=== PATIENT | male | born 1980 | race Caucasian/White ===

== ENCOUNTER 2017-12-20 23:15 | Inpatient (IN) | payer OTHER ==
[2017-12-20 23:18] VITALS: O2SAT 98
[2017-12-20] MEDS ORDERED: ceFAZolin 2 GM PREMIX 50 ML ONE (23:20)
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
[2017-12-20] MEDS ORDERED: IOHEXOL 350 MG/ML 10 ML VIAL (for RAD DIAG) IVCONTRAST ONE (23:36)
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
[2017-12-20 23:42] LABS: AUTOMATED NEUTROPHIL # 12.3 TH/MM3 (1.8-7.7); BASOPHIL # 0.1 TH/MM3 (0-0.2); BASOPHIL % 0.3 % (0.0-2.0); EOSINOPHIL % 0.2 % (0.0-4.0); HEMATOCRIT 48.1 % (39.0-51.0); HEMOGLOBIN 16.4 GM/DL (13.0-17.0); LYMPH % 25.3 % (9.0-44.0); LYMPHOCYTE # 4.4 TH/MM3 (1.0-4.8); MEAN CELL VOLUME 83.5 FL (80.0-100.0); MEAN CORPUSCULAR HEMOGLOBIN 28.4 PG (27.0-34.0); MEAN PLATELET VOLUME 8.3 FL (7.0-11.0); MONO % 3.5 % (0.0-8.0); MONOCYTE # 0.6 TH/MM3 (0-0.9); NEUT % 70.7 % (16.0-70.0); PLATELET COUNT 362 TH/MM3 (150-450); RED BLOOD COUNT 5.76 MIL/MM3 (4.50-5.90); RED CELL DISTRIBUTION WIDTH 13.4 % (11.6-17.2); WHITE BLOOD COUNT 17.4 TH/MM3 (4.0-11.0)
[2017-12-20 23:53] LABS: INTERNATIONAL NORMALIZED RATIO 1.1 RATIO; PROTHROMBIN TIME - PATIENT 11.4 SEC (9.8-11.6)
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
[2017-12-21] VITALS (14 sets, daily range): BP systolic 138–168; BP diastolic 59–91; PULSE 77–128; RESP 12–31; TEMP 98–99.8; O2SAT 94–100
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
[2017-12-21] MEDS ORDERED: ACETAMINOPHEN/HYDROcodone 325 MG/5 MG TAB PO PRN (00:30)
[2017-12-21] MEDS ORDERED: NALOXONE HCL 0.4 MG/ML AMP IV PUSH PRN (00:30)
[2017-12-21] MEDS ORDERED: ONDANSETRON HCL 4 MG/2 ML VIAL IV PUSH PRN (00:30)
[2017-12-21] MEDS ORDERED: MORPHINE SULFATE 4 MG/ML INJ IV PRN (00:45)
[2017-12-21] MEDS ORDERED: HYDROmorphone HCL PF 2 MG/ML VIAL IV PRN (00:45)
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
[2017-12-21] MEDS: D5-NS + KCL 20 MEQ INJ 1,000 ML IV SCH ×3 (01:29→20:43)
[2017-12-21] MEDS: ACETAMINOPHEN/HYDROcodone 325 MG/10 MG TAB PO PRN ×5 (04:05→20:48)
[2017-12-21] MEDS: PANTOPRAZOLE SOD 40 MG DELAYED RELEASE TAB PO SCH (08:54)
[2017-12-21] MEDS: DOCUSATE SODIUM 100 MG/10 ML UDC NG SCH ×2 (08:55→20:43)
[2017-12-21] MEDS: BACITRACIN TOP OINT 15 GM TUBE TOPICAL SCH (20:44)
[2017-12-22] VITALS (12 sets, daily range): BP systolic 141–171; BP diastolic 77–107; PULSE 79–113; RESP 12–20; TEMP 98.1–99.2; O2SAT 94–98
[2017-12-22] MEDS: ACETAMINOPHEN/HYDROcodone 325 MG/10 MG TAB PO PRN ×4 (01:41→21:37)
--- NOTE | 2017-12-22 05:31 | RADRPT ---
EXAM DATE/TIME: 12/22/2017 05:23 [place] COMPARISON: CT BRAIN W/O CONTRAST, December 20, 2017, 23:26. INDICATIONS : Follow up hemorrhage. RADIATION DOSE: 50.47 CTDIvol (mGy) MEDICAL HISTORY : None SURGICAL HISTORY : None. ENCOUNTER: Subsequent ACUITY: 2 days PAIN SCALE: 0/10 LOCATION: cranial TECHNIQUE: Multiple contiguous axial images were obtained of the head. Using automated exposure control and adj ustment of the mA and/or kV according to patient size, radiation dose was kept as low as reasonably a chievable to obtain optimal diagnostic quality images. DICOM format image data is available electro nically for review and comparison. FINDINGS: CEREBRUM: The ventricles are normal for age. No evidence of midline shift, mass lesion, hemorrhage or acute in farction. No extra-axial fluid collections are seen. POSTERIOR FOSSA: The cerebellum and brainstem are intact. The 4th ventricle is midline. The cerebellopontine angle i s unremarkable. EXTRACRANIAL: The visualized portion of the orbits is intact. A large subgaleal hematoma is seen overlying the left parietal bone. This is stable. A few scattered foci of air are seen within this. SKULL: The calvaria is intact. No evidence of skull fracture. CONCLUSION: 1. Stable large subgaleal hematoma on the left. 2. No acute intracranial abnormality observed. In particular, no intracranial hemorrhage appreciated on the current study. Nicolas Borrero Jr., MD on December 22, 2017 at 5:28 Board Certified Radiologist. This report was verified electronically.
[2017-12-22 05:53] LABS: AUTOMATED NEUTROPHIL # 10.4 TH/MM3 (1.8-7.7); BASOPHIL # 0.3 TH/MM3 (0-0.2); BASOPHIL % 1.6 % (0.0-2.0); EOSINOPHIL # 0.4 TH/MM3 (0-0.4); EOSINOPHIL % 2.3 % (0.0-4.0); HEMATOCRIT 47.7 % (39.0-51.0); HEMOGLOBIN 16.1 GM/DL (13.0-17.0); LYMPHOCYTE # 3.8 TH/MM3 (1.0-4.8); MEAN CELL VOLUME 83.9 FL (80.0-100.0); MEAN CORPUSCULAR HEMOGLOBIN 28.3 PG (27.0-34.0); MEAN CORPUSCULAR HGB CONC 33.7 % (32.0-36.0); MEAN PLATELET VOLUME 8.3 FL (7.0-11.0); MONO % 6.1 % (0.0-8.0); PLATELET COUNT 326 TH/MM3 (150-450); RED BLOOD COUNT 5.68 MIL/MM3 (4.50-5.90); RED CELL DISTRIBUTION WIDTH 13.7 % (11.6-17.2); WHITE BLOOD COUNT 15.7 TH/MM3 (4.0-11.0)
[2017-12-22 06:08] LABS: BICARBONATE 25.8 MEQ/L (21.0-32.0); CALCIUM 8.3 MG/DL (8.5-10.1); CREATININE 0.82 MG/DL (0.60-1.30)
[2017-12-22] MEDS: D5-NS + KCL 20 MEQ INJ 1,000 ML IV SCH (06:48)
[2017-12-22] MEDS: BACITRACIN TOP OINT 15 GM TUBE TOPICAL SCH ×2 (08:56→21:24)
[2017-12-22] MEDS: DOCUSATE SODIUM 100 MG/10 ML UDC NG SCH ×2 (08:56→21:24)
[2017-12-22] MEDS: PANTOPRAZOLE SOD 40 MG DELAYED RELEASE TAB PO SCH (08:56)
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
[2017-12-22] MEDS ORDERED: WALKER WHEELS/F1 MIS (09:45)
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
[2017-12-22] MEDS ORDERED: HYDR-3583 PO (22:31)
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
== END 2017-12-22 23:00 | disposition home or self-care (01) | DRG 605 ==
LOC: NEPI 23:15 → EDBD 12-21 00:11 → NEDA 12-21 00:11 → N03A 12-21 01:09 → N05B 12-22 17:35
PROVIDERS: ADMIT Neurological Surgery; ATTEND Neurological Surgery
PROC: 0HQ1XZZ Repair Face Skin, External Approach (ICD-10-PCS; principal; 2017-12-21)
PROC: 0HQKXZZ Repair Right Lower Leg Skin, External Approach (ICD-10-PCS; 2017-12-21)
DX: S81.012A Laceration without foreign body, left knee, initial encounter (principal); F10.120 Alcohol abuse with intoxication, uncomplicated; S00.83XA Contusion of other part of head, initial encounter; S01.81XA Laceration without foreign body of other part of head, initial encounter; Y90.6 Blood alcohol level of 120-199 mg/100 ml; R40.2410 Glasgow coma scale score 13-15, unspecified time; V28.9XXA Unspecified motorcycle rider injured in noncollision transport accident in traffic accident, initial encounter
CPT/HCPCS: 12002; 12013; 70450; 70486; 71045; 71260; 72125; 72170; 73560; 74177; 80048; 80307; 85025; 85610; 85730; 86850; 86900; 86901; 87641; 94150; 96374; 99291; G0390; J0690; J3480; Q9967